=== PATIENT | female | born 1955 | race Caucasian/White ===

== ENCOUNTER 2017-06-14 11:52 | Inpatient (IN) | payer BC ==
[~2017-06-14] VITALS: Ht 172.7 cm; Wt 88.6 kg
[2017-06-14 12:18] LABS: Hematocrit 40.4 % (33.0-51.0); Hemoglobin 13.6 g/dL (11.5-16.0); Mean Corpuscular HGB 28.9 pg (26.0-34.0); Mean Corpuscular HGB Conc 33.7 g/dL (31.5-36.5); Mean Corpuscular Volume 86 fL (80-100); Mean Platelet Volume 12.6 fL (9.1-12.4); Platelet Count 166 K/mm3 (150-400); RDW Coefficient Variation 12.3 % (11.7-14.2); RDW Standard Deviation 38.7 fL (35.1-46.3); White Blood Cell Count 16.43 K/mm3 (4.00-11.30)
[2017-06-14 12:30] LABS: Calcium, Ionized (POC) 0.94 mmol/L (1.10-1.46); Chloride (POC) 77 mmol/L (98-108); Creatinine (POC) 1.3 mg/dL (0.6-1.0); Glucose (ISTAT POC) 695 mg/dL (70-99); Potassium (POC) 3.8 mmol/L (3.5-5.5); Sodium (POC) 120 mmol/L (135-148); Total CO2 (POC) 33 mmol/L (21-32)
[2017-06-14 12:33] LABS: International Normalized Ratio 1.01; Prothrombin Time Results 10.5 Sec (9.7-11.5)
[2017-06-14 12:40] LABS: Alanine Aminotransfer (ALT/SGP 28 U/L (12-78); Albumin, Blood 2.2 g/dL (3.4-5.0); Albumin/Globulin Ratio 0.5 (0.8-1.8); Alk Phos 146 U/L (50-136); Anion Gap 13 mmol/L (6-16); Aspartate Aminotrans (AST/SGOT 23 U/L (12-37); Bilirubin, Total 0.5 mg/dL (0.1-1.0); Blood Urea Nitrogen 43 mg/dL (8-24); Bun/Creatinine Ratio 36.4 (12.0-20.0); CHOL/HDL RATIO 16.3; CO2, Blood 31 mmol/L (21-32); Calcium, Blood 8.7 mg/dL (8.5-10.1); Chloride, Blood 76 mmol/L (98-108); Cholesterol 179 mg/dL (50-200); Creatinine, Blood 1.18 mg/dL (0.40-1.00); Globulin, Blood 4.8 g/dL (2.2-4.0); Glomerular Filtration Rate 50 (60-); HDL Cholesterol 11 mg/dL (>39); Magnesium, Blood 2.3 mg/dL (1.6-2.4); Potassium, Blood 3.4 mmol/L (3.5-5.5); Sodium, Blood 120 mmol/L (136-145); Triglycerides 561 mg/dL (30-160); Troponin I <0.015 ng/mL (0.000-0.040); Very Low Density Lipoprot Chol Unable to Calculate mg/dL (6-32)
[2017-06-14 12:53] LABS: Glucose, Blood 698 mg/dL (70-99); LDL/HDL RATIO Unable to Calculate; Low Density Lipoprotein Chol Unable to Calculate mg/dL (0-110)
[2017-06-14 15:43] LABS: Glucose, Blood 627 mg/dL (70-99)
[2017-06-14 18:29] LABS: Glucose, Blood 527 mg/dL (70-99)
[2017-06-15 02:53] LABS: Bun/Creatinine Ratio 40.7 (12.0-20.0); Calcium, Blood 8.2 mg/dL (8.5-10.1); Creatinine, Blood 1.18 mg/dL (0.40-1.00); Potassium, Blood 3.6 mmol/L (3.5-5.5)
[2017-06-15 05:05] LABS: BASOPHILS ABSOLUTE AUTO 0.09 K/mm3 (0.00-0.23); BASOPHILS PERCENT AUTO 1 % (0-2); Hematocrit 37.9 % (33.0-51.0); Hemoglobin 12.6 g/dL (11.5-16.0); LYMPHOCYTES PERCENT AUTO 8 % (21-46); MONOCYTES ABSOLUTE AUTO 1.46 K/mm3 (0.16-1.47); MONOCYTES PERCENT AUTO 9 % (4-13); Mean Corpuscular HGB 28.5 pg (26.0-34.0); Mean Corpuscular HGB Conc 33.2 g/dL (31.5-36.5); Mean Corpuscular Volume 86 fL (80-100); Mean Platelet Volume 12.9 fL (9.1-12.4); Platelet Count 169 K/mm3 (150-400); RDW Coefficient Variation 12.2 % (11.7-14.2); RDW Standard Deviation 38.6 fL (35.1-46.3); Red Blood Cell Count 4.42 M/mm3 (3.80-5.20); White Blood Cell Count 17.22 K/mm3 (4.00-11.30)
[2017-06-15 05:07] LABS: EOSINOPHILS ABSOLUTE AUTO 0.26 K/mm3 (0.00-0.68); EOSINOPHILS PERCENT AUTO 2 % (0-6); IMMATURE GRAN ABSOLUTE AUTO 0.33 K/mm3 (0.00-0.10); IMMATURE GRAN PERCENT AUTO 2 % (0-1); NEUTROPHILS ABSOLUTE AUTO 13.78 K/mm3 (1.96-9.15); NEUTROPHILS PERCENT AUTO 80 % (41-73)
[2017-06-15 12:24] LABS: Bun/Creatinine Ratio 40.7 (12.0-20.0); Calcium, Blood 8.4 mg/dL (8.5-10.1); Creatinine, Blood 1.08 mg/dL (0.40-1.00); Potassium, Blood 3.6 mmol/L (3.5-5.5)
[2017-06-16 04:43] LABS: Anion Gap 5 mmol/L (6-16); Blood Urea Nitrogen 41 mg/dL (8-24); Bun/Creatinine Ratio 41.8 (12.0-20.0); CO2, Blood 33 mmol/L (21-32); Calcium, Blood 8.4 mg/dL (8.5-10.1); Chloride, Blood 94 mmol/L (98-108); Creatinine, Blood 0.98 mg/dL (0.40-1.00); Glomerular Filtration Rate >60 (60-); Glucose, Blood 91 mg/dL (70-99); Potassium, Blood 3.8 mmol/L (3.5-5.5); Sodium, Blood 132 mmol/L (136-145)
[2017-06-17 08:16] LABS: pH Blood Arterial 7.51 (7.35-7.45)
[2017-06-17 08:17] LABS: PO2 Arterial 48 mmHg (80-100)
[2017-06-17 08:38] LABS: BASOPHILS PERCENT AUTO 0 % (0-2); EOSINOPHILS ABSOLUTE AUTO 0.02 K/mm3 (0.00-0.68); EOSINOPHILS PERCENT AUTO 0 % (0-6); Hemoglobin 11.4 g/dL (11.5-16.0); IMMATURE GRAN ABSOLUTE AUTO 0.81 K/mm3 (0.00-0.10); IMMATURE GRAN PERCENT AUTO 3 % (0-1); LYMPHOCYTES ABSOLUTE AUTO 1.18 K/mm3 (0.84-5.20); LYMPHOCYTES PERCENT AUTO 5 % (21-46); MONOCYTES ABSOLUTE AUTO 2.75 K/mm3 (0.16-1.47); MONOCYTES PERCENT AUTO 12 % (4-13); Mean Corpuscular HGB 28.9 pg (26.0-34.0); Mean Corpuscular HGB Conc 33.5 g/dL (31.5-36.5); Mean Corpuscular Volume 86 fL (80-100); Mean Platelet Volume 12.3 fL (9.1-12.4); NEUTROPHILS ABSOLUTE AUTO 18.79 K/mm3 (1.96-9.15); NEUTROPHILS PERCENT AUTO 80 % (41-73); Platelet Count 158 K/mm3 (150-400); RDW Coefficient Variation 12.9 % (11.7-14.2); RDW Standard Deviation 40.8 fL (35.1-46.3); Red Blood Cell Count 3.94 M/mm3 (3.80-5.20); White Blood Cell Count 23.65 K/mm3 (4.00-11.30)
[2017-06-17 08:54] LABS: Alanine Aminotransfer (ALT/SGP 54 U/L (12-78); Albumin, Blood 1.8 g/dL (3.4-5.0); Albumin/Globulin Ratio 0.4 (0.8-1.8); Alk Phos 222 U/L (50-136); Anion Gap 8 mmol/L (6-16); Aspartate Aminotrans (AST/SGOT 60 U/L (12-37); Bilirubin, Total 0.7 mg/dL (0.1-1.0); Blood Urea Nitrogen 33 mg/dL (8-24); Bun/Creatinine Ratio 35.4 (12.0-20.0); CO2, Blood 30 mmol/L (21-32); Calcium, Blood 8.4 mg/dL (8.5-10.1); Chloride, Blood 96 mmol/L (98-108); Creatinine, Blood 0.93 mg/dL (0.40-1.00); Globulin, Blood 4.9 g/dL (2.2-4.0); Glomerular Filtration Rate >60 (60-); Glucose, Blood 69 mg/dL (70-99); Sodium, Blood 134 mmol/L (136-145); Total Protein, Blood 6.7 g/dL (6.4-8.2)
[2017-06-17 17:29] LABS: Bilirubin, Urine Neg (Neg); Blood, Urine 2+ (Neg); Glucose Qualitative, Urine Neg (Neg); Ketones, Urine Neg (Neg); Leukocyte Esterase, Urine 2+ (Neg); Nitrite, Urine Neg (Neg); Protein, Urine 2+ (Neg); Specific Gravity, Urine 1.015 (1.003-1.022); Urobilinogen, Urine NORM (Normal)
[2017-06-17 17:55] LABS: Appearance, Urine Clear (Clear); Color, Urine Yellow (P-Yellow)
[2017-06-17 17:57] LABS: Bacteria Mod /hpf; Squamous Epithelial Cells Many /hpf (Few)
[2017-06-17 22:36] LABS: PCO2 Arterial 37.3 mmHg (35-45); pH Blood Arterial 7.54 (7.35-7.45)
[2017-06-17 22:37] LABS: PO2 Arterial 46.6 mmHg (80-100)
[2017-06-17 23:24] LABS: BASOPHILS ABSOLUTE AUTO 0.09 K/mm3 (0.00-0.23); BASOPHILS PERCENT AUTO 0 % (0-2); EOSINOPHILS ABSOLUTE AUTO 0.01 K/mm3 (0.00-0.68); EOSINOPHILS PERCENT AUTO 0 % (0-6); Hematocrit 37.1 % (33.0-51.0); Hemoglobin 12.4 g/dL (11.5-16.0); IMMATURE GRAN ABSOLUTE AUTO 0.96 K/mm3 (0.00-0.10); IMMATURE GRAN PERCENT AUTO 5 % (0-1); LYMPHOCYTES ABSOLUTE AUTO 1.11 K/mm3 (0.84-5.20); LYMPHOCYTES PERCENT AUTO 5 % (21-46); MONOCYTES ABSOLUTE AUTO 2.51 K/mm3 (0.16-1.47); MONOCYTES PERCENT AUTO 12 % (4-13); Mean Corpuscular HGB 28.5 pg (26.0-34.0); Mean Corpuscular HGB Conc 33.4 g/dL (31.5-36.5); Mean Corpuscular Volume 85 fL (80-100); Mean Platelet Volume 11.7 fL (9.1-12.4); NEUTROPHILS ABSOLUTE AUTO 16.69 K/mm3 (1.96-9.15); NEUTROPHILS PERCENT AUTO 78 % (41-73); Platelet Count 194 K/mm3 (150-400); RDW Standard Deviation 40.4 fL (35.1-46.3); Red Blood Cell Count 4.35 M/mm3 (3.80-5.20); White Blood Cell Count 21.37 K/mm3 (4.00-11.30)
[2017-06-17 23:43] LABS: Albumin, Blood 1.8 g/dL (3.4-5.0); Albumin/Globulin Ratio 0.3 (0.8-1.8); Bilirubin, Total 0.9 mg/dL (0.1-1.0); Calcium, Blood 8.5 mg/dL (8.5-10.1); Creatinine, Blood 1.15 mg/dL (0.40-1.00); Globulin, Blood 5.3 g/dL (2.2-4.0); Potassium, Blood 4.1 mmol/L (3.5-5.5); Total Protein, Blood 7.1 g/dL (6.4-8.2)
[2017-06-18 00:32] LABS: U Amphetamine Screen Not Detected
[2017-06-18 00:33] LABS: U Barbituate Screen Not Detected; U Benzodiazapine Screen Not Detected; U Buprenorphine Screen Not Detected; U Cannabinoids Screen DETECTED; U Cocaine Screen Not Detected; U Methadone Screen Not Detected; U Methamphetamine Screen Not Detected; U Opiates Screen DETECTED; U Oxycodone Screen Not Detected; U Phencyclidine Screen Not Detected; U Propoxyphene Screen Not Detected
[2017-06-18 02:48] LABS: BASOPHILS ABSOLUTE AUTO 0.06 K/mm3 (0.00-0.23); BASOPHILS PERCENT AUTO 0 % (0-2); EOSINOPHILS PERCENT AUTO 0 % (0-6); Hematocrit 32.9 % (33.0-51.0); Hemoglobin 11.1 g/dL (11.5-16.0); IMMATURE GRAN ABSOLUTE AUTO 1.06 K/mm3 (0.00-0.10); IMMATURE GRAN PERCENT AUTO 5 % (0-1); LYMPHOCYTES ABSOLUTE AUTO 1.44 K/mm3 (0.84-5.20); LYMPHOCYTES PERCENT AUTO 7 % (21-46); MONOCYTES ABSOLUTE AUTO 2.62 K/mm3 (0.16-1.47); MONOCYTES PERCENT AUTO 12 % (4-13); Mean Corpuscular HGB Conc 33.7 g/dL (31.5-36.5); Mean Corpuscular Volume 86 fL (80-100); NEUTROPHILS ABSOLUTE AUTO 16.37 K/mm3 (1.96-9.15); NEUTROPHILS PERCENT AUTO 76 % (41-73); Platelet Count 173 K/mm3 (150-400); RDW Coefficient Variation 13.2 % (11.7-14.2); RDW Standard Deviation 41.1 fL (35.1-46.3); Red Blood Cell Count 3.83 M/mm3 (3.80-5.20); White Blood Cell Count 21.55 K/mm3 (4.00-11.30)
[2017-06-18 03:03] LABS: Creatinine, Blood 1.18 mg/dL (0.40-1.00); Potassium, Blood 4.2 mmol/L (3.5-5.5)
[2017-06-18 03:32] LABS: PO2 Arterial 83.3 mmHg (80-100); pH Blood Arterial 7.43 (7.35-7.45)
[2017-06-19 01:26] LABS: Hematocrit 32.1 % (33.0-51.0); Hemoglobin 10.8 g/dL (11.5-16.0); Mean Corpuscular HGB 29.1 pg (26.0-34.0); Mean Corpuscular HGB Conc 33.6 g/dL (31.5-36.5); Mean Corpuscular Volume 87 fL (80-100); Platelet Count 225 K/mm3 (150-400); RDW Coefficient Variation 13.2 % (11.7-14.2); RDW Standard Deviation 41.1 fL (35.1-46.3); Red Blood Cell Count 3.71 M/mm3 (3.80-5.20)
[2017-06-19 01:45] LABS: Anion Gap 7 mmol/L (6-16); Blood Urea Nitrogen 32 mg/dL (8-24); Bun/Creatinine Ratio 32.3 (12.0-20.0); CO2, Blood 30 mmol/L (21-32); Calcium, Blood 7.8 mg/dL (8.5-10.1); Chloride, Blood 100 mmol/L (98-108); Creatinine, Blood 0.99 mg/dL (0.40-1.00); Glomerular Filtration Rate >60 (60-); Glucose, Blood 229 mg/dL (70-99); Potassium, Blood 3.7 mmol/L (3.5-5.5); Sodium, Blood 137 mmol/L (136-145)
[2017-06-19 01:47] LABS: BAND PERCENT MAN 11 % (0-8); BASOPHILS PERCENT MAN 0 % (0-2); EOSINOPHILS PERCENT MAN 0 % (0-6); LYMPHOCYTES ABSOLUTE MAN 0.89 K/mm3 (0.84-5.20); LYMPHOCYTES PERCENT MAN 4 % (21-46); METAMYELOCYTE ABSOLUTE MAN 0.22 K/mm3 (0.00-0.00); METAMYELOCYTE PERCENT MAN 1 % (0-0); MONOCYTES ABSOLUTE MAN 0.44 K/mm3 (0.16-1.47); MONOCYTES PERCENT MAN 2 % (4-13); MYELOCYTE ABSOLUTE MAN 0.66 K/mm3 (0.00-0.00); MYELOCYTE PERCENT MAN 3 % (0-0); NEUTROPHILS ABSOLUTE MAN 20.07 K/mm3 (1.96-9.15); SEG NEUTROPHILS PERCENT MAN 79 % (41-73); TOTAL CELLS COUNTED 100
[2017-06-19 02:04] LABS: Vancomycin, Trough 20.3 ug/mL (5.0-10.0)
[2017-06-19 15:18] LABS: Vancomycin, Trough 11.4 ug/mL (5.0-10.0)
[2017-06-20 04:17] LABS: BASOPHILS ABSOLUTE AUTO 0.05 K/mm3 (0.00-0.23); BASOPHILS PERCENT AUTO 0 % (0-2); EOSINOPHILS ABSOLUTE AUTO 0.07 K/mm3 (0.00-0.68); EOSINOPHILS PERCENT AUTO 0 % (0-6); Hematocrit 30.1 % (33.0-51.0); Hemoglobin 9.9 g/dL (11.5-16.0); IMMATURE GRAN ABSOLUTE AUTO 0.85 K/mm3 (0.00-0.10); IMMATURE GRAN PERCENT AUTO 4 % (0-1); LYMPHOCYTES ABSOLUTE AUTO 1.36 K/mm3 (0.84-5.20); LYMPHOCYTES PERCENT AUTO 6 % (21-46); MONOCYTES ABSOLUTE AUTO 1.29 K/mm3 (0.16-1.47); MONOCYTES PERCENT AUTO 6 % (4-13); Mean Corpuscular HGB 28.9 pg (26.0-34.0); Mean Corpuscular HGB Conc 32.9 g/dL (31.5-36.5); Mean Corpuscular Volume 88 fL (80-100); Mean Platelet Volume 11.3 fL (9.1-12.4); NEUTROPHILS ABSOLUTE AUTO 18.53 K/mm3 (1.96-9.15); NEUTROPHILS PERCENT AUTO 84 % (41-73); Platelet Count 209 K/mm3 (150-400); RDW Coefficient Variation 13.2 % (11.7-14.2); RDW Standard Deviation 42.7 fL (35.1-46.3); Red Blood Cell Count 3.42 M/mm3 (3.80-5.20); White Blood Cell Count 22.15 K/mm3 (4.00-11.30)
[2017-06-20 04:32] LABS: Anion Gap 7 mmol/L (6-16); Blood Urea Nitrogen 25 mg/dL (8-24); CO2, Blood 30 mmol/L (21-32); Calcium, Blood 7.8 mg/dL (8.5-10.1); Chloride, Blood 98 mmol/L (98-108); Creatinine, Blood 0.86 mg/dL (0.40-1.00); Glomerular Filtration Rate >60 (60-); Glucose, Blood 169 mg/dL (70-99); Potassium, Blood 3.8 mmol/L (3.5-5.5); Sodium, Blood 135 mmol/L (136-145)
[2017-06-21 05:53] LABS: BASOPHILS ABSOLUTE AUTO 0.05 K/mm3 (0.00-0.23); BASOPHILS PERCENT AUTO 0 % (0-2); EOSINOPHILS ABSOLUTE AUTO 0.11 K/mm3 (0.00-0.68); EOSINOPHILS PERCENT AUTO 1 % (0-6); Hematocrit 29.5 % (33.0-51.0); Hemoglobin 9.6 g/dL (11.5-16.0); IMMATURE GRAN ABSOLUTE AUTO 0.81 K/mm3 (0.00-0.10); IMMATURE GRAN PERCENT AUTO 4 % (0-1); LYMPHOCYTES ABSOLUTE AUTO 1.55 K/mm3 (0.84-5.20); LYMPHOCYTES PERCENT AUTO 7 % (21-46); MONOCYTES ABSOLUTE AUTO 1.05 K/mm3 (0.16-1.47); MONOCYTES PERCENT AUTO 5 % (4-13); Mean Corpuscular HGB 28.7 pg (26.0-34.0); Mean Corpuscular HGB Conc 32.5 g/dL (31.5-36.5); Mean Corpuscular Volume 88 fL (80-100); Mean Platelet Volume 11.8 fL (9.1-12.4); NEUTROPHILS PERCENT AUTO 83 % (41-73); Platelet Count 224 K/mm3 (150-400); RDW Coefficient Variation 13.1 % (11.7-14.2); RDW Standard Deviation 42.7 fL (35.1-46.3); Red Blood Cell Count 3.34 M/mm3 (3.80-5.20); White Blood Cell Count 20.87 K/mm3 (4.00-11.30)
[2017-06-21 06:28] LABS: Anion Gap 6 mmol/L (6-16); Blood Urea Nitrogen 25 mg/dL (8-24); Bun/Creatinine Ratio 29.7 (12.0-20.0); CO2, Blood 31 mmol/L (21-32); Calcium, Blood 7.9 mg/dL (8.5-10.1); Chloride, Blood 97 mmol/L (98-108); Creatinine, Blood 0.84 mg/dL (0.40-1.00); Glomerular Filtration Rate >60 (60-); Glucose, Blood 85 mg/dL (70-99); Potassium, Blood 3.9 mmol/L (3.5-5.5); Sodium, Blood 134 mmol/L (136-145)
[2017-06-22 04:33] LABS: BASOPHILS ABSOLUTE AUTO 0.05 K/mm3 (0.00-0.23); BASOPHILS PERCENT AUTO 0 % (0-2); EOSINOPHILS ABSOLUTE AUTO 0.07 K/mm3 (0.00-0.68); EOSINOPHILS PERCENT AUTO 0 % (0-6); Hematocrit 29.5 % (33.0-51.0); Hemoglobin 9.7 g/dL (11.5-16.0); IMMATURE GRAN ABSOLUTE AUTO 0.84 K/mm3 (0.00-0.10); IMMATURE GRAN PERCENT AUTO 4 % (0-1); LYMPHOCYTES ABSOLUTE AUTO 1.49 K/mm3 (0.84-5.20); LYMPHOCYTES PERCENT AUTO 6 % (21-46); MONOCYTES ABSOLUTE AUTO 1.09 K/mm3 (0.16-1.47); MONOCYTES PERCENT AUTO 5 % (4-13); Mean Corpuscular HGB 28.4 pg (26.0-34.0); Mean Corpuscular HGB Conc 32.9 g/dL (31.5-36.5); Mean Corpuscular Volume 87 fL (80-100); Mean Platelet Volume 11.7 fL (9.1-12.4); NEUTROPHILS ABSOLUTE AUTO 19.82 K/mm3 (1.96-9.15); NEUTROPHILS PERCENT AUTO 85 % (41-73); Platelet Count 276 K/mm3 (150-400); RDW Coefficient Variation 13.1 % (11.7-14.2); Red Blood Cell Count 3.41 M/mm3 (3.80-5.20); White Blood Cell Count 23.36 K/mm3 (4.00-11.30)
[2017-06-22 04:48] LABS: Anion Gap 4 mmol/L (6-16); Blood Urea Nitrogen 19 mg/dL (8-24); CO2, Blood 33 mmol/L (21-32); Calcium, Blood 7.9 mg/dL (8.5-10.1); Chloride, Blood 98 mmol/L (98-108); Creatinine, Blood 0.76 mg/dL (0.40-1.00); Glomerular Filtration Rate >60 (60-); Glucose, Blood 66 mg/dL (70-99); Potassium, Blood 3.8 mmol/L (3.5-5.5); Sodium, Blood 135 mmol/L (136-145)
== END 2017-06-23 19:00 | disposition short-term general hospital (02) | DRG 871 ==
LOC: ER 11:52 → ICUW 12:49 → ICUE 12:49 → PCU 12:49 → MEDS 12:49 → ICUW 14:06 → MEDS 06-15 12:24 → PCU 06-17 08:42 → ICUE 06-17 23:20 → PCU 06-18 17:42 → MEDS 06-21 11:57
PROVIDERS: Emergency Medicine; Hospitalist; Internal Medicine; Nurse Practitioner Family
PROC: 4A023N7 Measurement of Cardiac Sampling and Pressure, Left Heart, Percutaneous Approach (ICD-10-PCS; principal; 2017-06-14)
PROC: B2111ZZ Fluoroscopy of Multiple Coronary Arteries using Low Osmolar Contrast (ICD-10-PCS; 2017-06-14)
PROC: B2151ZZ Fluoroscopy of Left Heart using Low Osmolar Contrast (ICD-10-PCS; 2017-06-14)
DX: R78.81 Bacteremia (principal); G92 Toxic encephalopathy; B37.0 Candidal stomatitis; E87.1 Hypo-osmolality and hyponatremia; E11.65 Type 2 diabetes mellitus with hyperglycemia; B95.61 Methicillin susceptible Staphylococcus aureus infection as the cause of diseases classified elsewhere; E87.6 Hypokalemia; I35.8 Other nonrheumatic aortic valve disorders; M54.5 Low back pain; R94.31 Abnormal electrocardiogram [ECG] [EKG]; I25.10 Atherosclerotic heart disease of native coronary artery without angina pectoris; E66.9 Obesity, unspecified; M25.552 Pain in left hip; R55 Syncope and collapse; E78.1 Pure hyperglyceridemia; F17.210 Nicotine dependence, cigarettes, uncomplicated; R90.89 Other abnormal findings on diagnostic imaging of central nervous system; Z74.09 Other reduced mobility; Z88.0 Allergy status to penicillin; Z68.27 Body mass index [BMI] 27.0-27.9, adult
CPT/HCPCS: 36415; 36416; 36600; 51703; 71260; 72100; 72131; 72156; 72157; 72158; 73502; 80047; 80048; 80053; 80061; 80202; 81001; 82803; 82947; 83036; 83605; 83735; 83880; 84484; 85014; 85025; 85027; 85347; 85610; 85651; 85730; 86850; 86900; 86901; 87040; 87077; 87086; 87147; 87186; 93005; 93010; 93306; 93458; 93571; 94640; 94660; 94760; 94762; 96374; 96375; 97162; 97530; 99152; 99153; 99285; A9577; C1769; C1894; G8978; G8979; J0690; J1644; J1815; J1817; J1885; J1940; J2060; J2250; J2310; J2405; J2543; J3010; J3370; J3480; J7030; J7050; Q9967

== ENCOUNTER 2017-07-04 15:21 | Observation (INO) | payer BC ==
[~2017-07-04] VITALS: Ht 165.1 cm; Wt 87.8 kg
[2017-07-04 16:14] LABS: Source, Urine Catheter
[2017-07-04 16:17] LABS: Appearance, Urine Clear (Clear); Bilirubin, Urine Neg (Neg); Blood, Urine 2+ (Neg); Color, Urine Yellow (P-Yellow); Glucose Qualitative, Urine Neg (Neg); Ketones, Urine 3+ (Neg); Leukocyte Esterase, Urine Neg (Neg); Nitrite, Urine Neg (Neg); Protein, Urine 3+ (Neg); Urobilinogen, Urine NORM (Normal); pH, Urine 6.5 (5.0-8.0)
[2017-07-04 16:27] LABS: BASOPHILS ABSOLUTE AUTO 0.02 K/mm3 (0.00-0.23); BASOPHILS PERCENT AUTO 0 % (0-2); EOSINOPHILS ABSOLUTE AUTO 0.01 K/mm3 (0.00-0.68); EOSINOPHILS PERCENT AUTO 0 % (0-6); Hematocrit 28.3 % (33.0-51.0); Hemoglobin 9.2 g/dL (11.5-16.0); IMMATURE GRAN ABSOLUTE AUTO 0.07 K/mm3 (0.00-0.10); IMMATURE GRAN PERCENT AUTO 1 % (0-1); LYMPHOCYTES ABSOLUTE AUTO 0.65 K/mm3 (0.84-5.20); LYMPHOCYTES PERCENT AUTO 7 % (21-46); MONOCYTES ABSOLUTE AUTO 0.52 K/mm3 (0.16-1.47); MONOCYTES PERCENT AUTO 5 % (4-13); Mean Corpuscular HGB Conc 32.5 g/dL (31.5-36.5); Mean Corpuscular Volume 92 fL (80-100); Mean Platelet Volume 10.6 fL (9.1-12.4); NEUTROPHILS ABSOLUTE AUTO 8.59 K/mm3 (1.96-9.15); NEUTROPHILS PERCENT AUTO 87 % (41-73); Platelet Count 290 K/mm3 (150-400); RDW Coefficient Variation 14.8 % (11.7-14.2); RDW Standard Deviation 49.2 fL (35.1-46.3); Red Blood Cell Count 3.07 M/mm3 (3.80-5.20); White Blood Cell Count 9.86 K/mm3 (4.00-11.30)
[2017-07-04 16:35] LABS: Bacteria Not Seen /hpf; Red Blood Cells, Urine Not Seen /hpf (0-2); Squamous Epithelial Cells Not Seen /hpf (Few); White Blood Cells, Urine Not Seen /hpf (0-5)
[2017-07-04 17:07] LABS: Digoxin (Lanoxin) 0.56 ug/mL (0.80-2.00)
[2017-07-04 17:22] LABS: Alanine Aminotransfer (ALT/SGP <6 U/L (12-78); Albumin, Blood 1.9 g/dL (3.4-5.0); Albumin/Globulin Ratio 0.4 (0.8-1.8); Alk Phos 94 U/L (50-136); Anion Gap 8 mmol/L (6-16); Aspartate Aminotrans (AST/SGOT 15 U/L (12-37); Bilirubin, Total 0.3 mg/dL (0.1-1.0); Blood Urea Nitrogen 5 mg/dL (8-24); CO2, Blood 32 mmol/L (21-32); Chloride, Blood 96 mmol/L (98-108); Creatinine, Blood 0.63 mg/dL (0.40-1.00); Globulin, Blood 5.1 g/dL (2.2-4.0); Glomerular Filtration Rate >60 (60-); Glucose, Blood 103 mg/dL (70-99); Potassium, Blood 3.3 mmol/L (3.5-5.5); Sodium, Blood 136 mmol/L (136-145)
[2017-07-04] MEDS ORDERED: [UNRECOGNIZED DRUG - CODE] (17:52)
[2017-07-04 21:23] LABS: Salicylate 1.7 mg/dL (2.8-20.0); Troponin I 0.046 ng/mL (0.000-0.040)
[2017-07-04 21:25] LABS: Acetaminophen, Random <2.0 ug/mL (10.0-30.0)
[2017-07-04] MEDS ORDERED: LANOXIN125 MCG PO (22:08)
[2017-07-04] MEDS ORDERED: LIDO700A20 TOP (22:10)
[2017-07-04] MEDS ORDERED: ATOR10 PO (22:10)
[2017-07-04] MEDS ORDERED: XARELTO20 MG PO (22:11)
[2017-07-04] MEDS ORDERED: FAMO20 PO (22:12)
[2017-07-04] MEDS ORDERED: ACET500 PO (22:13)
[2017-07-04] MEDS ORDERED: METO50 PO (22:13)
[2017-07-04] MEDS ORDERED: Humalog100 UNIT/3 SC (22:15)
[2017-07-04] MEDS ORDERED: METCAR500 PO (22:16)
[2017-07-04] MEDS ORDERED: OXYC5 PO (22:17)
[2017-07-04] MEDS ORDERED: Pedi-Dri 100,0060 GM TOP (22:21)
[2017-07-04] MEDS ORDERED: CEFAZOLIN2 GM/50 ML IV (22:24)
[2017-07-05 02:05] LABS: BASOPHILS ABSOLUTE AUTO 0.01 K/mm3 (0.00-0.23); BASOPHILS PERCENT AUTO 0 % (0-2); EOSINOPHILS ABSOLUTE AUTO 0.01 K/mm3 (0.00-0.68); EOSINOPHILS PERCENT AUTO 0 % (0-6); Hematocrit 25.2 % (33.0-51.0); IMMATURE GRAN ABSOLUTE AUTO 0.06 K/mm3 (0.00-0.10); IMMATURE GRAN PERCENT AUTO 1 % (0-1); LYMPHOCYTES ABSOLUTE AUTO 1.19 K/mm3 (0.84-5.20); LYMPHOCYTES PERCENT AUTO 11 % (21-46); MONOCYTES ABSOLUTE AUTO 0.91 K/mm3 (0.16-1.47); MONOCYTES PERCENT AUTO 9 % (4-13); Mean Corpuscular HGB 29.6 pg (26.0-34.0); Mean Corpuscular HGB Conc 31.7 g/dL (31.5-36.5); Mean Corpuscular Volume 93 fL (80-100); Mean Platelet Volume 10.4 fL (9.1-12.4); NEUTROPHILS ABSOLUTE AUTO 8.34 K/mm3 (1.96-9.15); NEUTROPHILS PERCENT AUTO 79 % (41-73); Platelet Count 253 K/mm3 (150-400); RDW Coefficient Variation 15.3 % (11.7-14.2); RDW Standard Deviation 51.1 fL (35.1-46.3); White Blood Cell Count 10.52 K/mm3 (4.00-11.30)
[2017-07-05 02:27] LABS: Alanine Aminotransfer (ALT/SGP 8 U/L (12-78); Albumin, Blood 1.6 g/dL (3.4-5.0); Albumin/Globulin Ratio 0.3 (0.8-1.8); Alk Phos 87 U/L (50-136); Anion Gap 8 mmol/L (6-16); Aspartate Aminotrans (AST/SGOT 12 U/L (12-37); Bilirubin, Total 0.2 mg/dL (0.1-1.0); Blood Urea Nitrogen 5 mg/dL (8-24); Bun/Creatinine Ratio 8.6 (12.0-20.0); CO2, Blood 30 mmol/L (21-32); Calcium, Blood 7.3 mg/dL (8.5-10.1); Chloride, Blood 98 mmol/L (98-108); Creatinine, Blood 0.58 mg/dL (0.40-1.00); Globulin, Blood 4.6 g/dL (2.2-4.0); Glomerular Filtration Rate >60 (60-); Glucose, Blood 98 mg/dL (70-99); Potassium, Blood 3.8 mmol/L (3.5-5.5); Sodium, Blood 136 mmol/L (136-145); Total Protein, Blood 6.2 g/dL (6.4-8.2); Troponin I 0.045 ng/mL (0.000-0.040)
[2017-07-05 07:10] LABS: U Cannabinoids Screen DETECTED
[2017-07-05 07:11] LABS: U Amphetamine Screen Not Detected; U Barbituate Screen Not Detected; U Benzodiazapine Screen DETECTED; U Buprenorphine Screen Not Detected; U Cocaine Screen Not Detected; U Methadone Screen Not Detected; U Methamphetamine Screen Not Detected; U Opiates Screen Not Detected; U Oxycodone Screen DETECTED; U Phencyclidine Screen Not Detected; U Propoxyphene Screen Not Detected
[2017-07-06 00:48] LABS: BASOPHILS ABSOLUTE AUTO 0.01 K/mm3 (0.00-0.23); BASOPHILS PERCENT AUTO 0 % (0-2); EOSINOPHILS ABSOLUTE AUTO 0.17 K/mm3 (0.00-0.68); EOSINOPHILS PERCENT AUTO 2 % (0-6); Hematocrit 26.5 % (33.0-51.0); Hemoglobin 8.4 g/dL (11.5-16.0); IMMATURE GRAN ABSOLUTE AUTO 0.05 K/mm3 (0.00-0.10); IMMATURE GRAN PERCENT AUTO 1 % (0-1); LYMPHOCYTES ABSOLUTE AUTO 1.17 K/mm3 (0.84-5.20); LYMPHOCYTES PERCENT AUTO 15 % (21-46); MONOCYTES ABSOLUTE AUTO 0.64 K/mm3 (0.16-1.47); MONOCYTES PERCENT AUTO 8 % (4-13); Mean Corpuscular HGB 29.9 pg (26.0-34.0); Mean Corpuscular HGB Conc 31.7 g/dL (31.5-36.5); Mean Corpuscular Volume 94 fL (80-100); NEUTROPHILS PERCENT AUTO 74 % (41-73); Platelet Count 268 K/mm3 (150-400); RDW Coefficient Variation 15.1 % (11.7-14.2); Red Blood Cell Count 2.81 M/mm3 (3.80-5.20); White Blood Cell Count 7.74 K/mm3 (4.00-11.30)
[2017-07-06 01:08] LABS: Alanine Aminotransfer (ALT/SGP 8 U/L (12-78); Albumin, Blood 1.6 g/dL (3.4-5.0); Albumin/Globulin Ratio 0.3 (0.8-1.8); Alk Phos 83 U/L (50-136); Anion Gap 7 mmol/L (6-16); Aspartate Aminotrans (AST/SGOT 10 U/L (12-37); Bilirubin, Total 0.2 mg/dL (0.1-1.0); Blood Urea Nitrogen 7 mg/dL (8-24); Bun/Creatinine Ratio 12.6 (12.0-20.0); CO2, Blood 30 mmol/L (21-32); Calcium, Blood 7.1 mg/dL (8.5-10.1); Chloride, Blood 100 mmol/L (98-108); Creatinine, Blood 0.56 mg/dL (0.40-1.00); Globulin, Blood 4.8 g/dL (2.2-4.0); Glomerular Filtration Rate >60 (60-); Glucose, Blood 105 mg/dL (70-99); Potassium, Blood 3.5 mmol/L (3.5-5.5); Sodium, Blood 137 mmol/L (136-145); Total Protein, Blood 6.4 g/dL (6.4-8.2)
[2017-07-07 06:05] LABS: BASOPHILS ABSOLUTE AUTO 0.02 K/mm3 (0.00-0.23); BASOPHILS PERCENT AUTO 0 % (0-2); EOSINOPHILS ABSOLUTE AUTO 0.13 K/mm3 (0.00-0.68); EOSINOPHILS PERCENT AUTO 1 % (0-6); Hematocrit 27.3 % (33.0-51.0); Hemoglobin 8.7 g/dL (11.5-16.0); IMMATURE GRAN ABSOLUTE AUTO 0.08 K/mm3 (0.00-0.10); IMMATURE GRAN PERCENT AUTO 1 % (0-1); LYMPHOCYTES ABSOLUTE AUTO 0.91 K/mm3 (0.84-5.20); LYMPHOCYTES PERCENT AUTO 10 % (21-46); MONOCYTES ABSOLUTE AUTO 0.68 K/mm3 (0.16-1.47); MONOCYTES PERCENT AUTO 7 % (4-13); Mean Corpuscular HGB 29.4 pg (26.0-34.0); Mean Corpuscular HGB Conc 31.9 g/dL (31.5-36.5); Mean Corpuscular Volume 92 fL (80-100); Mean Platelet Volume 10.4 fL (9.1-12.4); NEUTROPHILS ABSOLUTE AUTO 7.43 K/mm3 (1.96-9.15); NEUTROPHILS PERCENT AUTO 80 % (41-73); Platelet Count 292 K/mm3 (150-400); RDW Coefficient Variation 15.3 % (11.7-14.2); RDW Standard Deviation 50.5 fL (35.1-46.3); Red Blood Cell Count 2.96 M/mm3 (3.80-5.20); White Blood Cell Count 9.25 K/mm3 (4.00-11.30)
[2017-07-07 06:36] LABS: Anion Gap 6 mmol/L (6-16); Blood Urea Nitrogen 5 mg/dL (8-24); Bun/Creatinine Ratio 10.1 (12.0-20.0); CO2, Blood 32 mmol/L (21-32); Calcium, Blood 7.5 mg/dL (8.5-10.1); Chloride, Blood 100 mmol/L (98-108); Creatinine, Blood 0.49 mg/dL (0.40-1.00); Glomerular Filtration Rate >60 (60-); Glucose, Blood 187 mg/dL (70-99); Potassium, Blood 3.2 mmol/L (3.5-5.5); Sodium, Blood 138 mmol/L (136-145)
[2017-07-08 06:03] LABS: Albumin, Blood 1.7 g/dL (3.4-5.0); Anion Gap 6 mmol/L (6-16); Blood Urea Nitrogen 5 mg/dL (8-24); CO2, Blood 33 mmol/L (21-32); Calcium, Blood 7.5 mg/dL (8.5-10.1); Chloride, Blood 100 mmol/L (98-108); Glomerular Filtration Rate >60 (60-); Glucose, Blood 141 mg/dL (70-99); Magnesium, Blood 1.2 mg/dL (1.6-2.4); Phosphorus, Blood 2.8 mg/dL (2.5-4.9); Potassium, Blood 3.4 mmol/L (3.5-5.5); Sodium, Blood 139 mmol/L (136-145)
[2017-07-08 09:37] LABS: Digoxin (Lanoxin) 0.52 ug/mL (0.80-2.00)
[2017-07-09 05:04] LABS: Albumin, Blood 1.7 g/dL (3.4-5.0); Anion Gap 5 mmol/L (6-16); Blood Urea Nitrogen 6 mg/dL (8-24); Bun/Creatinine Ratio 10.9 (12.0-20.0); CO2, Blood 34 mmol/L (21-32); Calcium, Blood 7.5 mg/dL (8.5-10.1); Chloride, Blood 98 mmol/L (98-108); Creatinine, Blood 0.55 mg/dL (0.40-1.00); Glomerular Filtration Rate >60 (60-); Glucose, Blood 163 mg/dL (70-99); Magnesium, Blood 1.5 mg/dL (1.6-2.4); Potassium, Blood 3.6 mmol/L (3.5-5.5); Sodium, Blood 137 mmol/L (136-145)
[2017-07-09 05:11] LABS: Digoxin (Lanoxin) 0.63 ug/mL (0.80-2.00)
[2017-07-09] MEDS ORDERED: HYDR1TAB94 PO (13:40)
[2017-07-09] MEDS ORDERED: Acidophilus La100 GM PO (13:41)
[2017-07-09] MEDS ORDERED: LEVEMIR FL100 UNIT/1 SC (13:42)
[2017-07-09] MEDS ORDERED: MAGOXI400 PO (13:43)
== END 2017-07-09 14:34 ==
LOC: ER 15:21 → MEDS 15:22 → ERHOLD 15:22 → MEDS 21:06
PROVIDERS: Emergency Medicine; Family Medicine; Internal Medicine
DX: G92 Toxic encephalopathy (principal); E11.9 Type 2 diabetes mellitus without complications; I48.2 Chronic atrial fibrillation; G06.2 Extradural and subdural abscess, unspecified; I48.92 Unspecified atrial flutter; E78.5 Hyperlipidemia, unspecified; I10 Essential (primary) hypertension; E83.42 Hypomagnesemia; D63.1 Anemia in chronic kidney disease; E87.6 Hypokalemia; F17.210 Nicotine dependence, cigarettes, uncomplicated; Z90.49 Acquired absence of other specified parts of digestive tract; Z98.890 Other specified postprocedural states; Z79.899 Other long term (current) drug therapy; R41.0 Disorientation, unspecified; E66.9 Obesity, unspecified; I25.10 Atherosclerotic heart disease of native coronary artery without angina pectoris; J98.4 Other disorders of lung; Z68.30 Body mass index [BMI] 30.0-30.9, adult
CPT/HCPCS: 36415; 70450; 71045; 71046; 80048; 80053; 80069; 80162; 81001; 82140; 82330; 82947; 83036; 83605; 83735; 84443; 84484; 85025; 87493; 94762; 96361; 96374; 97162; 97530; 99285; C9113; G0480; G8978; G8979; J0610; J0690; J1815; J3010; J3475; J3480; J7030

== ENCOUNTER 2017-08-07 15:00 | Day surgery (SDC) | payer BC ==
[~2017-08-07 15:00] MED LIST: ACET500 PO; ATOR10 PO; Acidophilus La100 GM PO; CEFAZOLIN2 GM/50 ML IV; FAMO20 PO; HYDR1TAB94 PO; Humalog100 UNIT/3 SC; LANOXIN125 MCG PO; LEVEMIR FL100 UNIT/1 SC; LIDO700A20 TOP; MAGOXI400 PO; METCAR500 PO; METO50 PO; OXYC5 PO; Pedi-Dri 100,0060 GM TOP; XARELTO20 MG PO; [UNRECOGNIZED DRUG - CODE]
== END 2017-08-07 16:25 | disposition home or self-care (01) ==
LOC: ATC 15:00
DX: G06.1 Intraspinal abscess and granuloma (principal); E11.9 Type 2 diabetes mellitus without complications; I25.10 Atherosclerotic heart disease of native coronary artery without angina pectoris
CPT/HCPCS: 96374; J0696

== ENCOUNTER 2017-08-08 00:22 | Day surgery (SDC) | payer BC | END 2017-08-08 15:04 | disposition home or self-care (01) | LOC: ATC 00:22 | DX: G06.1 Intraspinal abscess and granuloma (principal) | CPT/HCPCS: 96374; J0696 ==

== ENCOUNTER 2017-08-11 00:50 | Day surgery (SDC) | payer BC | END 2017-08-11 10:47 | disposition home or self-care (01) | LOC: ATC 00:50 | DX: G06.1 Intraspinal abscess and granuloma (principal); A41.9 Sepsis, unspecified organism; I48.92 Unspecified atrial flutter; D64.9 Anemia, unspecified; I10 Essential (primary) hypertension; E78.5 Hyperlipidemia, unspecified | CPT/HCPCS: 96374; J0696 ==

== ENCOUNTER 2017-08-12 00:35 | Day surgery (SDC) | payer BC | END 2017-08-12 11:17 | disposition home or self-care (01) | LOC: ATC 00:35 | DX: G06.1 Intraspinal abscess and granuloma (principal); E11.9 Type 2 diabetes mellitus without complications; E78.5 Hyperlipidemia, unspecified | CPT/HCPCS: 96374 ==

== ENCOUNTER 2017-08-13 00:40 | Day surgery (SDC) | payer BC | END 2017-08-13 13:48 | disposition home or self-care (01) | LOC: ATC 00:40 | DX: G06.1 Intraspinal abscess and granuloma (principal) | CPT/HCPCS: 96374; J0696 ==

== ENCOUNTER 2017-08-14 00:34 | Day surgery (SDC) | payer BC | END 2017-08-14 10:41 | disposition home or self-care (01) | LOC: ATC 00:34 | DX: G06.1 Intraspinal abscess and granuloma (principal); E11.9 Type 2 diabetes mellitus without complications | CPT/HCPCS: 96374; J0696 ==

== ENCOUNTER → 2017-08-22 | Outpatient (CLI) | payer BC ==
[2017-08-22 15:49] LABS: BASOPHILS ABSOLUTE AUTO 0.07 K/mm3 (0.00-0.23); BASOPHILS PERCENT AUTO 1 % (0-2); EOSINOPHILS ABSOLUTE AUTO 0.35 K/mm3 (0.00-0.68); EOSINOPHILS PERCENT AUTO 5 % (0-6); Hematocrit 33.2 % (33.0-51.0); IMMATURE GRAN ABSOLUTE AUTO 0.04 K/mm3 (0.00-0.10); IMMATURE GRAN PERCENT AUTO 1 % (0-1); LYMPHOCYTES ABSOLUTE AUTO 1.22 K/mm3 (0.84-5.20); LYMPHOCYTES PERCENT AUTO 16 % (21-46); MONOCYTES ABSOLUTE AUTO 0.55 K/mm3 (0.16-1.47); MONOCYTES PERCENT AUTO 7 % (4-13); Mean Corpuscular HGB 27.5 pg (26.0-34.0); Mean Corpuscular HGB Conc 30.1 g/dL (31.5-36.5); Mean Corpuscular Volume 92 fL (80-100); Mean Platelet Volume 12.5 fL (9.1-12.4); NEUTROPHILS ABSOLUTE AUTO 5.61 K/mm3 (1.96-9.15); NEUTROPHILS PERCENT AUTO 72 % (41-73); Platelet Count 244 K/mm3 (150-400); RDW Coefficient Variation 14.3 % (11.7-14.2); RDW Standard Deviation 48.3 fL (35.1-46.3); Red Blood Cell Count 3.63 M/mm3 (3.80-5.20); White Blood Cell Count 7.84 K/mm3 (4.00-11.30)
[2017-08-22 16:08] LABS: Alanine Aminotransfer (ALT/SGP 18 U/L (12-78); Albumin, Blood 2.9 g/dL (3.4-5.0); Albumin/Globulin Ratio 0.6 (0.8-1.8); Alk Phos 128 U/L (50-136); Anion Gap 6 mmol/L (6-16); Aspartate Aminotrans (AST/SGOT 13 U/L (12-37); Bilirubin, Total 0.2 mg/dL (0.1-1.0); Blood Urea Nitrogen 24 mg/dL (8-24); Bun/Creatinine Ratio 29.6 (12.0-20.0); CO2, Blood 27 mmol/L (21-32); Calcium, Blood 9.1 mg/dL (8.5-10.1); Chloride, Blood 107 mmol/L (98-108); Creatinine, Blood 0.81 mg/dL (0.40-1.00); Globulin, Blood 4.8 g/dL (2.2-4.0); Glomerular Filtration Rate >60 (60-); Glucose, Blood 176 mg/dL (70-99); Potassium, Blood 4.6 mmol/L (3.5-5.5); Sodium, Blood 140 mmol/L (136-145); Total Protein, Blood 7.7 g/dL (6.4-8.2)
== END | disposition home or self-care (01) ==
LOC: LAB HH 09:00
PROVIDERS: Internal Medicine Infectious Disease
DX: G06.1 Intraspinal abscess and granuloma (principal); Z79.2 Long term (current) use of antibiotics
CPT/HCPCS: 80053; 85025; 85651; 86140

== ENCOUNTER → 2017-08-29 | Outpatient (CLI) | payer BC ==
[2017-08-29 15:44] LABS: BASOPHILS ABSOLUTE AUTO 0.04 K/mm3 (0.00-0.23); BASOPHILS PERCENT AUTO 1 % (0-2); EOSINOPHILS ABSOLUTE AUTO 0.39 K/mm3 (0.00-0.68); EOSINOPHILS PERCENT AUTO 5 % (0-6); Hematocrit 33.4 % (33.0-51.0); Hemoglobin 10.3 g/dL (11.5-16.0); IMMATURE GRAN ABSOLUTE AUTO 0.03 K/mm3 (0.00-0.10); IMMATURE GRAN PERCENT AUTO 0 % (0-1); LYMPHOCYTES ABSOLUTE AUTO 1.24 K/mm3 (0.84-5.20); LYMPHOCYTES PERCENT AUTO 16 % (21-46); MONOCYTES ABSOLUTE AUTO 0.52 K/mm3 (0.16-1.47); MONOCYTES PERCENT AUTO 7 % (4-13); Mean Corpuscular HGB 27.3 pg (26.0-34.0); Mean Corpuscular HGB Conc 30.8 g/dL (31.5-36.5); Mean Corpuscular Volume 89 fL (80-100); Mean Platelet Volume 12.3 fL (9.1-12.4); NEUTROPHILS ABSOLUTE AUTO 5.56 K/mm3 (1.96-9.15); NEUTROPHILS PERCENT AUTO 72 % (41-73); Platelet Count 213 K/mm3 (150-400); RDW Coefficient Variation 14.3 % (11.7-14.2); RDW Standard Deviation 46.2 fL (35.1-46.3); Red Blood Cell Count 3.77 M/mm3 (3.80-5.20); White Blood Cell Count 7.78 K/mm3 (4.00-11.30)
[2017-08-29 16:05] LABS: Alanine Aminotransfer (ALT/SGP 19 U/L (12-78); Albumin, Blood 2.9 g/dL (3.4-5.0); Albumin/Globulin Ratio 0.6 (0.8-1.8); Alk Phos 130 U/L (50-136); Anion Gap 7 mmol/L (6-16); Aspartate Aminotrans (AST/SGOT 13 U/L (12-37); Bilirubin, Total 0.3 mg/dL (0.1-1.0); Blood Urea Nitrogen 12 mg/dL (8-24); Bun/Creatinine Ratio 15.8 (12.0-20.0); CO2, Blood 27 mmol/L (21-32); Calcium, Blood 9.1 mg/dL (8.5-10.1); Chloride, Blood 107 mmol/L (98-108); Creatinine, Blood 0.76 mg/dL (0.40-1.00); Globulin, Blood 4.7 g/dL (2.2-4.0); Glomerular Filtration Rate >60 (60-); Glucose, Blood 129 mg/dL (70-99); Potassium, Blood 4.4 mmol/L (3.5-5.5); Sodium, Blood 141 mmol/L (136-145); Total Protein, Blood 7.6 g/dL (6.4-8.2)
== END | disposition home or self-care (01) ==
LOC: LAB HH 15:37
PROVIDERS: Internal Medicine Infectious Disease
DX: G06.1 Intraspinal abscess and granuloma (principal); Z79.2 Long term (current) use of antibiotics
CPT/HCPCS: 80053; 85025; 85651; 86140

== ENCOUNTER → 2017-09-05 | Outpatient (CLI) | payer BC ==
[2017-09-05 16:11] LABS: BASOPHILS ABSOLUTE AUTO 0.04 K/mm3 (0.00-0.23); BASOPHILS PERCENT AUTO 1 % (0-2); EOSINOPHILS PERCENT AUTO 5 % (0-6); Hemoglobin 10.6 g/dL (11.5-16.0); IMMATURE GRAN ABSOLUTE AUTO 0.02 K/mm3 (0.00-0.10); IMMATURE GRAN PERCENT AUTO 0 % (0-1); LYMPHOCYTES ABSOLUTE AUTO 1.09 K/mm3 (0.84-5.20); LYMPHOCYTES PERCENT AUTO 13 % (21-46); MONOCYTES ABSOLUTE AUTO 0.61 K/mm3 (0.16-1.47); MONOCYTES PERCENT AUTO 7 % (4-13); Mean Corpuscular HGB 27.1 pg (26.0-34.0); Mean Corpuscular HGB Conc 31.2 g/dL (31.5-36.5); Mean Corpuscular Volume 87 fL (80-100); Mean Platelet Volume 12.7 fL (9.1-12.4); NEUTROPHILS ABSOLUTE AUTO 6.46 K/mm3 (1.96-9.15); NEUTROPHILS PERCENT AUTO 75 % (41-73); Platelet Count 186 K/mm3 (150-400); RDW Coefficient Variation 14.9 % (11.7-14.2); RDW Standard Deviation 47.4 fL (35.1-46.3); Red Blood Cell Count 3.91 M/mm3 (3.80-5.20); White Blood Cell Count 8.62 K/mm3 (4.00-11.30)
[2017-09-05 16:59] LABS: C-REACTIVE PROTEIN, EXT RANGE 0.431 mg/dL (0.000-0.300)
[2017-09-05 17:25] LABS: Alanine Aminotransfer (ALT/SGP 17 U/L (12-78); Albumin, Blood 3.1 g/dL (3.4-5.0); Albumin/Globulin Ratio 0.8 (0.8-1.8); Alk Phos 110 U/L (50-136); Anion Gap 10 mmol/L (6-16); Aspartate Aminotrans (AST/SGOT 11 U/L (12-37); Bilirubin, Total 0.3 mg/dL (0.1-1.0); Blood Urea Nitrogen 9 mg/dL (8-24); Bun/Creatinine Ratio 10.7 (12.0-20.0); CO2, Blood 27 mmol/L (21-32); Calcium, Blood 8.8 mg/dL (8.5-10.1); Chloride, Blood 106 mmol/L (98-108); Creatinine, Blood 0.85 mg/dL (0.40-1.00); Glomerular Filtration Rate >60 (60-); Glucose, Blood 165 mg/dL (70-99); Potassium, Blood 4.2 mmol/L (3.5-5.5); Sodium, Blood 143 mmol/L (136-145); Total Protein, Blood 7.1 g/dL (6.4-8.2)
== END ==
LOC: LAB HH 10:30
PROVIDERS: Internal Medicine Infectious Disease
DX: G06.1 Intraspinal abscess and granuloma (principal); Z79.2 Long term (current) use of antibiotics
CPT/HCPCS: 80053; 85025; 85651; 86140

== ENCOUNTER 2023-01-18 22:34 | Emergency (ER) | payer OTHER, BC ==
[~2023-01-18] VITALS: Ht 172.7 cm; Wt 56.7 kg
[~2023-01-18 22:34] MED LIST changes: +Acetaminophen-1 EAC1 PO; +CYCL10 PO; +FESO4 PO
[2023-01-19 00:51] VITALS: BP 160/95
== END 2023-01-19 02:07 | disposition home or self-care (01) ==
LOC: ER 22:34
DX: S83.91XA Sprain of unspecified site of right knee, initial encounter (principal); S70.01XA Contusion of right hip, initial encounter; I12.9 Hypertensive chronic kidney disease with stage 1 through stage 4 chronic kidney disease, or unspecified chronic kidney disease; E11.22 Type 2 diabetes mellitus with diabetic chronic kidney disease; N18.9 Chronic kidney disease, unspecified; I48.91 Unspecified atrial fibrillation; F17.210 Nicotine dependence, cigarettes, uncomplicated; Z88.0 Allergy status to penicillin; Z88.5 Allergy status to narcotic agent; Z88.1 Allergy status to other antibiotic agents; Z79.4 Long term (current) use of insulin; Z79.01 Long term (current) use of anticoagulants; Z79.899 Other long term (current) drug therapy; W01.198A Fall on same level from slipping, tripping and stumbling with subsequent striking against other object, initial encounter
CPT/HCPCS: 73502; 73562-RT; 99284-25; A9270

== ENCOUNTER 2023-07-12 08:59 | Emergency (ER) | payer BC ==
[~2023-07-12] VITALS: Ht 162.6 cm; Wt 59.0 kg
[2023-07-12 09:35] LABS: BASOPHILS ABSOLUTE AUTO 0.06 K/mm3 (0.00-0.23); BASOPHILS PERCENT AUTO 1 % (0-2); EOSINOPHILS PERCENT AUTO 7 % (0-6); Hematocrit 51.8 % (33.0-51.0); Hemoglobin 16.2 g/dL (11.5-16.0); IMMATURE GRAN ABSOLUTE AUTO 0.02 K/mm3 (0.00-0.10); IMMATURE GRAN PERCENT AUTO 1 % (0-1); LYMPHOCYTES ABSOLUTE AUTO 0.68 K/mm3 (0.84-5.20); LYMPHOCYTES PERCENT AUTO 16 % (21-46); MONOCYTES ABSOLUTE AUTO 0.36 K/mm3 (0.16-1.47); MONOCYTES PERCENT AUTO 9 % (4-13); Mean Corpuscular HGB 29.1 pg (26.0-34.0); Mean Corpuscular HGB Conc 31.3 g/dL (31.5-36.5); Mean Corpuscular Volume 93 fL (80-100); NEUTROPHILS PERCENT AUTO 66 % (41-73); Platelet Count 103 K/mm3 (150-400); RDW Coefficient Variation 16.8 % (11.7-14.2); RDW Standard Deviation 56.8 fL (35.1-46.3); Red Blood Cell Count 5.57 M/mm3 (3.80-5.20); White Blood Cell Count 4.22 K/mm3 (4.00-11.30)
[2023-07-12 09:38] LABS: Mean Platelet Volume 12.7 fL (9.1-12.4)
[2023-07-12 10:00] LABS: Bun/Creatinine Ratio 42.7 (12.0-20.0); Calcium, Blood 8.9 mg/dL (8.5-10.1); Creatinine, Blood 1.31 mg/dL (0.40-1.00); Magnesium, Blood 2.6 mg/dL (1.6-2.4); Potassium, Blood 5.3 mmol/L (3.5-5.5); Thyroid Stimulating Hormone 1.53 uIU/mL (0.360-4.800)
[2023-07-12 10:14] LABS: Digoxin (Lanoxin) 0.77 ug/mL (0.80-2.00)
[2023-07-12 12:32] VITALS: BP 162/65
== END 2023-07-12 13:00 | disposition home or self-care (01) ==
LOC: ER 08:59
PROVIDERS: Student in an Organized Health Care Education/Training Program
DX: E10.649 Type 1 diabetes mellitus with hypoglycemia without coma (principal); I44.0 Atrioventricular block, first degree; Z88.0 Allergy status to penicillin; Z88.1 Allergy status to other antibiotic agents; Z88.5 Allergy status to narcotic agent; Z79.4 Long term (current) use of insulin; Z79.01 Long term (current) use of anticoagulants; Z79.899 Other long term (current) drug therapy; I48.91 Unspecified atrial fibrillation; I10 Essential (primary) hypertension; F17.210 Nicotine dependence, cigarettes, uncomplicated
CPT/HCPCS: 80048; 80162; 82947; 83735; 84443; 85025; 93005; 93010; 99285-25

== ENCOUNTER 2023-12-06 06:25 | Inpatient (IN) | payer BC ==
[~2023-12-06] VITALS: Ht 172.7 cm; Wt 52.0 kg
[2023-12-06] MEDS ORDERED: Albuterol 2.5 MG/3 ML VIAL INH SCH (06:50)
[2023-12-06] MEDS ORDERED: MethylPREDNISolone Sod Succ 125 MG Vial IV ONE (06:50)
[2023-12-06] MEDS ORDERED: Ipratropium/Albuterol SulF 2.5-0.5MG/3 ML Amp INH ONE (06:50)
[2023-12-06 07:01] LABS: BASOPHILS ABSOLUTE AUTO 0.02 K/mm3 (0.00-0.23); BASOPHILS PERCENT AUTO 0 % (0-2); EOSINOPHILS ABSOLUTE AUTO 0.02 K/mm3 (0.00-0.68); EOSINOPHILS PERCENT AUTO 0 % (0-6); Hematocrit 54.5 % (33.0-51.0); Hemoglobin 18.2 g/dL (11.5-16.0); IMMATURE GRAN ABSOLUTE AUTO 0.04 K/mm3 (0.00-0.10); IMMATURE GRAN PERCENT AUTO 0 % (0-1); LYMPHOCYTES ABSOLUTE AUTO 0.39 K/mm3 (0.84-5.20); LYMPHOCYTES PERCENT AUTO 4 % (21-46); MONOCYTES ABSOLUTE AUTO 0.77 K/mm3 (0.16-1.47); MONOCYTES PERCENT AUTO 7 % (4-13); Mean Corpuscular HGB 29.5 pg (26.0-34.0); Mean Corpuscular HGB Conc 33.4 g/dL (31.5-36.5); Mean Corpuscular Volume 88 fL (80-100); Mean Platelet Volume 12.8 fL (9.1-12.4); NEUTROPHILS ABSOLUTE AUTO 9.21 K/mm3 (1.96-9.15); NEUTROPHILS PERCENT AUTO 88 % (41-73); Platelet Count 154 K/mm3 (150-400); RDW Coefficient Variation 14.5 % (11.7-14.2); RDW Standard Deviation 46.7 fL (35.1-46.3); Red Blood Cell Count 6.17 M/mm3 (3.80-5.20); White Blood Cell Count 10.45 K/mm3 (4.00-11.30)
[2023-12-06] MEDS ORDERED: NS 1,000 ML IV SCH ×2 (07:15→09:45)
[2023-12-06 07:34] LABS: Alanine Aminotransfer (ALT/SGP 60 U/L (12-78); Albumin, Blood 3.5 g/dL (3.4-5.0); Albumin/Globulin Ratio 0.9 (0.8-1.8); Alk Phos 70 U/L (50-136); Anion Gap 14 mmol/L (3-11); Aspartate Aminotrans (AST/SGOT 73 U/L (12-37); Bilirubin, Total 0.6 mg/dL (0.1-1.0); Blood Urea Nitrogen 124 mg/dL (8-24); Bun/Creatinine Ratio 49.6 (12.0-20.0); CO2, Blood 30 mmol/L (21-32); Calcium, Blood 9.2 mg/dL (8.5-10.1); Chloride, Blood 95 mmol/L (98-108); Digoxin (Lanoxin) 2.44 ug/mL (0.80-2.00); Globulin, Blood 3.9 g/dL (2.2-4.0); Glomerular Filtration Rate 21 (60-); Glucose, Blood 137 mg/dL (70-99); Magnesium, Blood 2.2 mg/dL (1.6-2.4); Potassium, Blood 4.5 mmol/L (3.5-5.5); Sodium, Blood 134 mmol/L (136-145); Total Protein, Blood 7.4 g/dL (6.4-8.2)
[2023-12-06 07:47] LABS: Influenza A, PCR NEGATIVE (NEGATIVE); Influenza B, PCR NEGATIVE (NEGATIVE); Resp Syncytial Virus, PCR NEGATIVE (NEGATIVE)
[2023-12-06 07:59] LABS: SARS-Cov-2 (COVID-19) PCR, MMC POSITIVE (NEGATIVE)
[2023-12-06] MEDS ORDERED: Azithromycin 500 MG in NS 250 ML IV ONE (08:00)
[2023-12-06] MEDS ORDERED: CefTRIAXone Sodium 1,000 MG in NS 50 ML IV ONE (08:00)
[2023-12-06 08:46] LABS: Base Excess Venous 8.7 mmol/L; Bicarbonate Venous 29.2 mmol/L (24.0-30.0); PCO2 Venous 60.5 mmHg (38-42); pH Blood Venous 7.36 (7.34-7.37)
[2023-12-06] MEDS ORDERED: Ipratropium/Albuterol SulF 2.5-0.5MG/3 ML Amp INH SCH (09:45)
[2023-12-06] MEDS ORDERED: Albuterol 2.5 MG/3 ML VIAL INH PRN (09:45)
[2023-12-06] MEDS ORDERED: Acetaminophen 325 MG TABLET PO PRN (09:45)
[2023-12-06] MEDS ORDERED: Ondansetron HCl 2 MG / ML 2ML Vial IV PRN (09:50)
[2023-12-06] MEDS ORDERED: METO100ER PO (10:33)
[2023-12-06] MEDS ORDERED: XARELTO20 M1 PO (10:33)
[2023-12-06] MEDS ORDERED: BACLOFEN10 M4 PO (10:33)
[2023-12-06] MEDS ORDERED: ATOR10 PO (10:34)
[2023-12-06] MEDS ORDERED: BUMETANIDE2 M6 PO (10:34)
[2023-12-06] MEDS ORDERED: ALBU90OI INH (10:34)
[2023-12-06] MEDS ORDERED: DIGOX125 MC1 PO (10:34)
[2023-12-06] MEDS ORDERED: BREO ELLIPTA 51 EACH IH (10:35)
[2023-12-06] MEDS ORDERED: XARELTO20 MG PO (10:37)
[2023-12-06] MEDS ORDERED: BASAGLAR K100 UNIT/3 SC (11:01)
[2023-12-06] MEDS ORDERED: Insulin Human Lispro 100 Units/ML 3ML Syringe SC SCH (11:30)
[2023-12-06] MEDS ORDERED: Baclofen 10 MG Tab PO PRN (11:35)
[2023-12-06 12:18] VITALS: BP 146/109
--- NOTE | 2023-12-06 12:54 | NUR ---
PT AOX3 AND HAS BEEN COOPERATIVE OF CARE. PT CAME UP ON 4L AND DID NEED O2 INCREASED WHILE BEING TURNED. PT IS NOW SATING AT 94 ON 3L. OXIMETRY HAS BEEN ORDERED.PT COULD ANSWER QUESTIONS, BUT WOULD SUDDENLY NOT RESPOND AND ACT LIKE SHE HAD LOST CONCIOUSNESS, DR WEBB IS AWARE. PT WAS ORIENTED TO ROOM AND CALL LIGHT. WILL CONTINUE TO MONITOR.
[2023-12-06] MEDS ORDERED: Mometasone/Formoterol MDI 100/5 mcg 13 GM INH SCH (13:00)
[2023-12-06 14:48] VITALS: BP 150/71
[2023-12-06] MEDS ORDERED: Benzonatate 100 MG Cap PO PRN (16:05)
--- NOTE | 2023-12-06 16:57 | NUR ---
PT IS CURRENTLY SLEEPING VERY HARD AND TAKES A LOT TO WAKE UP. VITALS HAVE BEEN FINE WILL CONTINUE TO MONITOR CLOSELY. PT WAS GOTTEN UP TO BEDSIDE COMMODE WITH ANOTHER RN AND THE AID. PT WAS VERY UNSTEADY AND WAS A HEAVY TWO PERSON. PT CURRENTLY HAS PERWICK IN PLACE AND CALL LIGHT WITHIN REACH. WILL CONTINUE TO MONITOR.
[2023-12-06 20:02] VITALS: BP 176/81
[2023-12-06] MEDS ORDERED: Lactobacil 2-S.Thermo-Bifido 1 1 Cap PO SCH (21:00)
[2023-12-06] MEDS ORDERED: Insulin Glargine-Yfgn 100 Unit/mL 3 ML SYR SC SCH (21:00)
[2023-12-06] MEDS ORDERED: GuaiFENesin 600 MG TabCR PO SCH (21:00)
[2023-12-07 05:50] VITALS: BP 177/91
[2023-12-07 07:17] LABS: BASOPHILS ABSOLUTE AUTO 0.01 K/mm3 (0.00-0.23); BASOPHILS PERCENT AUTO 0 % (0-2); EOSINOPHILS PERCENT AUTO 0 % (0-6); Hematocrit 54.8 % (33.0-51.0); IMMATURE GRAN ABSOLUTE AUTO 0.03 K/mm3 (0.00-0.10); IMMATURE GRAN PERCENT AUTO 1 % (0-1); LYMPHOCYTES ABSOLUTE AUTO 0.19 K/mm3 (0.84-5.20); LYMPHOCYTES PERCENT AUTO 3 % (21-46); MONOCYTES ABSOLUTE AUTO 0.51 K/mm3 (0.16-1.47); MONOCYTES PERCENT AUTO 9 % (4-13); Mean Corpuscular HGB 29.4 pg (26.0-34.0); Mean Corpuscular HGB Conc 32.8 g/dL (31.5-36.5); Mean Corpuscular Volume 90 fL (80-100); Mean Platelet Volume 12.3 fL (9.1-12.4); NEUTROPHILS ABSOLUTE AUTO 5.26 K/mm3 (1.96-9.15); NEUTROPHILS PERCENT AUTO 88 % (41-73); Platelet Count 158 K/mm3 (150-400); RDW Coefficient Variation 14.5 % (11.7-14.2); RDW Standard Deviation 47.3 fL (35.1-46.3); Red Blood Cell Count 6.12 M/mm3 (3.80-5.20)
[2023-12-07 07:41] LABS: Alanine Aminotransfer (ALT/SGP 51 U/L (12-78); Albumin, Blood 3.2 g/dL (3.4-5.0); Albumin/Globulin Ratio 0.8 (0.8-1.8); Alk Phos 65 U/L (50-136); Anion Gap 10 mmol/L (3-11); Aspartate Aminotrans (AST/SGOT 42 U/L (12-37); Bilirubin, Total 0.5 mg/dL (0.1-1.0); Blood Urea Nitrogen 95 mg/dL (8-24); Bun/Creatinine Ratio 59.7 (12.0-20.0); CO2, Blood 31 mmol/L (21-32); Chloride, Blood 103 mmol/L (98-108); Creatinine, Blood 1.59 mg/dL (0.40-1.00); Digoxin (Lanoxin) 1.65 ug/mL (0.80-2.00); Glomerular Filtration Rate 36 (60-); Glucose, Blood 216 mg/dL (70-99); Sodium, Blood 140 mmol/L (136-145); Total Protein, Blood 7.2 g/dL (6.4-8.2)
[2023-12-07] MEDS ORDERED: NS 1,000 ML IV SCH (08:00)
[2023-12-07 08:20] VITALS: BP 163/79
[2023-12-07] MEDS ORDERED: dexAMETHasone 4 MG TAB PO SCH (09:00)
[2023-12-07] MEDS ORDERED: Digoxin 0.125 MG Tab PO SCH (09:00)
[2023-12-07] MEDS ORDERED: Azithromycin 500 MG in NS 250 ML IV SCH (09:00)
[2023-12-07] MEDS ORDERED: Metoprolol Succinate 50 MG TABCR PO SCH (09:00)
[2023-12-07] MEDS ORDERED: CefTRIAXone Sodium 1,000 MG in NS 100 ML IV SCH (09:00)
[2023-12-07] MEDS ORDERED: Rivaroxaban 10 MG Tab PO SCH (09:00)
[2023-12-07] MEDS ORDERED: Bumetanide 1 MG Tab PO SCH (09:00)
[2023-12-07] MEDS ORDERED: Atorvastatin 10 MG Tab PO SCH (09:00)
[2023-12-07 14:58] VITALS: BP 152/70
--- NOTE | 2023-12-07 17:51 | NUR ---
SHIFT SUMMARY: PT AOX4 STILL WEAK AND CANT AMBULATE BUT CAN FEED HERSELF AND HOLD CONVERSATION. RANDOMLY FORGETFUL BUT MOSTLY PLEASANT AND GOOD MOOD. O2 2L NC AND HOVERING AROUND 90 WHILE AWAKE AND FLUCTUATING WHILE EATING AND SLEEPING. COUGHING UP SPUTUM REGULARLY. PUREWICK CHANGED OT AT 1730 AND LINENS CHANGED. PT EATING AND RESTING. BED IN LOWEST POSITION, RAILS UP, AND CALL LIGHT IN REACH. CONTINUING CARE
--- NOTE | 2023-12-07 18:05 | NUR ---
THIS GRADUATE INTERN HAS REVIEWED AND AGREES WITH ALL ASSESSMENTS BY KULDEEP HYDE.
[2023-12-07 20:32] VITALS: BP 148/60
[2023-12-07] MEDS ORDERED: AmLODIPine Besylate 5 MG Tab PO SCH (21:00)
[2023-12-08 02:52] VITALS: BP 148/66
[2023-12-08 07:23] VITALS: BP 152/69
[2023-12-08] MEDS ORDERED: Azithromycin 250 MG Tab PO SCH (09:00)
[2023-12-08 12:02] LABS: Bun/Creatinine Ratio 59.8 (12.0-20.0); Calcium, Blood 8.6 mg/dL (8.5-10.1); Creatinine, Blood 1.12 mg/dL (0.40-1.00); Potassium, Blood 4.2 mmol/L (3.5-5.5)
[2023-12-08 15:31] VITALS: BP 162/70
--- NOTE | 2023-12-08 18:28 | NUR ---
VSS, A-Ox4, denies SOB, denies any pain, ambulates 2x assist to chair, on 2L NC. Lungs diminished, heart regular, bowel sounds normative, content of urine using bedpan, redness on bottom C/D/I. Pt can make needs known, call palomo in hand, bed in lowest position.
[2023-12-08 19:11] VITALS: BP 157/70
--- NOTE | 2023-12-09 02:38 | NUR ---
PT CALLED WANTING TO KNOW IF HER BRYANT HAD BROUGHT IN HER BLOOD SUGAR MACHINE AND SUPPLIES. IT DOES NOT APPEAR TO BE IN HER ROOM. THE PRIMARY RN IS NOT AWARE OF A PLAN FOR HER TO BRING THEM IN. WE EXPLAINED THAT WHILE SHE WAS HERE THAT WE WOULD CHECK HER BLOOD SUGAR BEFORE MEALS AND AT BEDTIME AND IF SHE WANTED US TO DO A SPOT CHECK ON HER BLOOD SUGAR AT ANOTHER TIME WE WOULD BE MORE THAN HAPPY TO. WE ASKED IF SHE WANTED US TO DO ONE NOW. HER INITIAL REACTION WAS THAT, NO SHE DID NOT KNOW WHO WE ARE OR TRUST US OR KNOW WHOSE HOUSE SHE WAS IN, HOWEVER WHEN SHE STATED THAT HER BRYANT WAS SUPPOSED TO BRING HER MACHINE IN SHE SAID HE BROUGHT HER HERE. I REMINDED HER THAT SHE HAD TOLD US THAT AND THAT SHE WAS AT THE HOSPITAL. I EXPLAINED THAT WE NEEDED TO USE OUR MACHINES THAT SINC UP WITH OUR COMPUTERS FOR THE BLOOD SUGAR LEVEL TO COME ACROSS AND FOR US TO COVER IT WITH INSULIN. BUT IF SHE WANTED TO POKE HER FINGER AND THEN WE USE OUR MACHINE THAT IT WAS OK. SHE SAID SHE WANTED TO GO HOME AND SHE WAS GOING TO CALL A TAXI. I TOLD HER SHE WAS NOT ON A HOLD SO IF SHE WANTED TO LEAVE SHE COULD BUT THAT I COULD NOT CALL ANYONE TO COME GET HER. I THEN HANDED HER THE PHONE. I ASKED HER IF SHE WANTED US TO CHECK HER BLOOD SUGAR FOR HER SINCE HER MACHINE WAS NOT HERE, SHE SAID YES. I BROUGHT THE MACHINE IN AND GOT EVERYTHING READY AND ASKED HER IS SHE WANTED TO POKE HER OWN FINGER, SHE SAID YES. I HANDED HER THE LANCET, I ASKED HER IF SHE KNEW HOW TO USE IT, SHE SAID YES, SHE ATTEMPTED TO USE IT FOR A FEW SECONDS THEN HANDED IT BACK AND ASKED ME TO POKE HER FINGER. HER BLOOD SUGAR WAS 206. I ASKED HER IF SHE WANTED US TO ASK THE DR ABOUT COVERAGE FOR THAT NUMBER OR IF SHE WAS OK WITH THAT. SHE SAID SHE DID NOT THINK SHE NEEDED COVERAGE FOR IT AND WAS OK WITH IT. THEN SHE HANDED ME BACK THE PHONE. SHE DENIES NEED FOR ANYTHING ELSE AT THIS TIME. CALL LIGHT IS IN REACH. I LET HER KNOW TO CALL IF SHE NEEDED ANYTHING ELSE AND THAT I WOULD ALSO CHECK IN ON HER IN A LITTLE WHILE. SHE APPEARS TO HAVE FORGOTTEN THAT SHE WAS MAKING STATEMENTS ABOUT WANTING TO LEAVE. PRIMARY RN IS AWARE. PT DOES NOT APPEAR TO HAVE ANY OTHER DISTRESS AT THIS TIME.
[2023-12-09 03:58] VITALS: BP 170/79
--- NOTE | 2023-12-09 06:46 | NUR ---
PT STILL REFUSING TO WEAR O2.
[2023-12-09 07:29] VITALS: BP 157/75
[2023-12-09] MEDS ORDERED: GUAI600T33 PO (12:08)
[2023-12-09] MEDS ORDERED: AMLO5 PO (12:08)
[2023-12-09] MEDS ORDERED: VISBIOME 112.51 EACH PO (12:09)
[2023-12-09] MEDS ORDERED: LOSA25 PO (12:10)
[2023-12-09] MEDS ORDERED: IPRAT-ALBUT 0.5-3 ML INH (12:10)
[2023-12-09] MEDS ORDERED: PRED20 PO (12:11)
--- NOTE | 2023-12-09 14:50 | NUR ---
DISCHARGE: PT D/C @1410 VIA WHEELCHAIR WITH . IV REMOVED BY [employer]ORCH OPERATOR W/O COMPLICATIONS. MEDS FAXED TO [facility] ON [address]. OXYGEN ARRIVED BY JARRETT PRIOR TO D/C. NO QUESTIONS AT TIME OF DISCHARGE.
== END 2023-12-09 14:09 | disposition home or self-care (01) | DRG 177 ==
LOC: ER 06:25 → MEDS 10:35 → ENPENDDIS 12-09 11:33 → MEDS 12-09 14:09
PROVIDERS: Internal Medicine; Student in an Organized Health Care Education/Training Program; ADMIT Internal Medicine
PROC: 3E0DX3Z Introduction of Anti-inflammatory into Mouth and Pharynx, External Approach (ICD-10-PCS; principal; 2023-12-06)
DX: U07.1 COVID-19 (principal); G92.8 Other toxic encephalopathy; J96.01 Acute respiratory failure with hypoxia; J12.82 Pneumonia due to coronavirus disease 2019; N17.9 Acute kidney failure, unspecified; J44.1 Chronic obstructive pulmonary disease with (acute) exacerbation; I48.20 Chronic atrial fibrillation, unspecified; J44.0 Chronic obstructive pulmonary disease with (acute) lower respiratory infection; N18.30 Chronic kidney disease, stage 3 unspecified; I12.9 Hypertensive chronic kidney disease with stage 1 through stage 4 chronic kidney disease, or unspecified chronic kidney disease; I25.10 Atherosclerotic heart disease of native coronary artery without angina pectoris; E78.5 Hyperlipidemia, unspecified; D63.1 Anemia in chronic kidney disease; M19.90 Unspecified osteoarthritis, unspecified site; M54.50 Low back pain, unspecified; G89.29 Other chronic pain; E11.22 Type 2 diabetes mellitus with diabetic chronic kidney disease; Z74.09 Other reduced mobility; Z87.891 Personal history of nicotine dependence; Z88.0 Allergy status to penicillin; Z88.8 Allergy status to other drugs, medicaments and biological substances; Z79.899 Other long term (current) drug therapy; Z79.01 Long term (current) use of anticoagulants; Z79.4 Long term (current) use of insulin; Z79.891 Long term (current) use of opiate analgesic; I25.2 Old myocardial infarction; Z98.890 Other specified postprocedural states; Z90.49 Acquired absence of other specified parts of digestive tract; Z98.51 Tubal ligation status; Z90.89 Acquired absence of other organs
CPT/HCPCS: 0241U; 36415; 70450; 71045; 80048; 80053; 80162; 82803; 82947; 83605; 83735; 83880; 84145; 84484; 85025; 87040; 93005; 93010; 94640; 94644; 94664; 94761; 94762; 96365; 96375; 97110; 97162; 97165; 97530; 97535; 99285-25; A9270; J0456; J0696; J1815; J2919; J7030; J7050

== ENCOUNTER → 2024-01-20 | Outpatient (CLI) | payer BC ==
[~2024-01-20] MED LIST changes: +ALBU90OI INH; +AMLO5 PO; +BACLOFEN10 M4 PO; +BASAGLAR K100 UNIT/3 SC; +BREO ELLIPTA 51 EACH IH; +BUMETANIDE2 M6 PO; +DIGOX125 MC1 PO; +GUAI600T33 PO; +IPRAT-ALBUT 0.5-3 ML INH; +LOSA25 PO; +METO100ER PO; +PRED20 PO; +VISBIOME 112.51 EACH PO; +XARELTO20 M1 PO
[2024-01-20 18:12] LABS: Source, Urine Clean Catch
[2024-01-20 19:20] LABS: Appearance, Urine Hazy (Clear); Bilirubin, Urine Neg (Neg); Blood, Urine Neg (Neg); Color, Urine Yellow (P-Yellow); Glucose Qualitative, Urine Neg (Neg); Ketones, Urine Neg (Neg); Leukocyte Esterase, Urine 3+ (Neg); Nitrite, Urine Pos (Neg); Protein, Urine 3+ (Neg); Urobilinogen, Urine NORM (Normal)
[2024-01-20 19:31] LABS: Red Blood Cells, Urine 0-2 /hpf (0-2); Squamous Epithelial Cells Few /hpf (Few); Triple Phosphate Crystals Many /hpf
[2024-01-20 19:33] LABS: Bacteria Many /hpf
== END | disposition home or self-care (01) ==
LOC: LAB SHORT 18:10 → LAB 18:10
PROVIDERS: Nurse Practitioner Family
DX: R30.0 Dysuria (principal); R82.90 Unspecified abnormal findings in urine
CPT/HCPCS: 81001; 87077; 87086; 87186

== ENCOUNTER 2024-03-02 18:27 | Emergency (ER) | payer BC ==
[~2024-03-02] VITALS: Ht 172.7 cm; Wt 68.0 kg
[2024-03-02] MEDS ORDERED: Ketorolac Tromethamine 15mg Vial IM ONE (20:50)
[2024-03-02] MEDS ORDERED: Lidocaine 4% 1 Patch TOP ONE (20:50)
[2024-03-02] MEDS ORDERED: LIDOCAINE1 EACH TOP (20:50)
[2024-03-02 21:01] VITALS: BP 174/74
== END 2024-03-02 21:00 | disposition home or self-care (01) ==
LOC: ER 18:27
DX: M54.2 Cervicalgia (principal); I10 Essential (primary) hypertension; E11.9 Type 2 diabetes mellitus without complications; Z79.52 Long term (current) use of systemic steroids; Z79.51 Long term (current) use of inhaled steroids; Z79.899 Other long term (current) drug therapy; Z88.0 Allergy status to penicillin; Z88.5 Allergy status to narcotic agent; Z88.8 Allergy status to other drugs, medicaments and biological substances
CPT/HCPCS: 70450; 96372; 99283-25; A9270; J1885